=== PATIENT | female | born 1945 | race Caucasian/White ===

== ENCOUNTER → 2018-03-28 | Outpatient (CLI) | payer OTHER, MEDICARE | LOC: FIMAGING 11:05 | PROVIDERS: ATTEND Orthopaedic Surgery | DX: M17.12 Unilateral primary osteoarthritis, left knee (principal) ==

== ENCOUNTER 2018-04-14 07:36 | Inpatient (IN) | payer OTHER, MEDICARE ==
--- NOTE | 2018-04-14 07:02 | PDHPUP ---
History & Physical Update H&P update statement: This history and physical update is based on an assessment of the patient which was completed after admission or registration (within 24 hours), but prior to the surgery/procedure. H&P update: H&P reviewed & patient examined, no change in patient's condition since H&P completed
[~2018-04-14 07:36] MED LIST: ROPIVACAINE 0.2% 80 MG, EPINEPHrine 0.2 MG, KETOROLAC TROMETHAMINE 30 MG in SYRINGE 0 ML IU ONE; TRANEXAMIC ACID 3,000 MG in NS (SYRINGE) 50 ML IRR ONE
[2018-04-14] MEDS ORDERED: LIDOCAINE 1% 2 ML INJ ID PRN (08:30)
[2018-04-14] MEDS ORDERED: ACETAMINOPHEN 325 MG TAB PO ONE (08:30)
[2018-04-14] MEDS ORDERED: ceFAZolin 2 GM/DEXTROSE 100 ML IV ONE (08:30)
[2018-04-14] MEDS ORDERED: DEXAMETHASONE 4 MG/ML VIAL IVP ONE (08:30)
[2018-04-14] MEDS ORDERED: FAMOTIDINE 20 MG TAB PO ONE (08:30)
[2018-04-14] MEDS ORDERED: LR 1,000 ML IV ONE (08:30)
[2018-04-14] MEDS ORDERED: TRANEXAMIC ACID 3,000 MG/50 ML BAG IRR ONE (08:31)
[2018-04-14] MEDS ORDERED: VANCOMYCIN 1 GM VIAL ONE (08:31)
[2018-04-14] MEDS ORDERED: PROPOFOL/EMULSION 500 MG/50 ML BOTTLE IV ONE (08:42)
[2018-04-14] MEDS ORDERED: LIDOCAINE 2% 5 ML SDV ONE (08:44)
--- NOTE | 2018-04-14 08:48 | PDANEPAE ---
ANE History of Present Illness left TKA ANE Past Medical History - Cardiovascular History Hx Hypertension: No Hx Arrhythmias: Yes Hx Chest Pain: No Hx Coronary Artery / Peripheral Vascular Disease: No Hx CHF / Valvular Disease: No Hx Palpitations: No Cardiovascular History Comment: Afib. ppm - Pulmonary History Hx COPD: No Hx Asthma/Reactive Airway Disease: No Hx Recent Upper Respiratory Infection: No Hx Oxygen in Use at Home: No Hx Sleep Apnea: Yes Sleep Apnea Screening Result - Last Documented: Positive Pulmonary History Comment: shannan uses cpap. hx PE'S - Neurologic History Hx Cerebrovascular Accident: No Hx Seizures: No Hx Dementia: No - Endocrine History Hx Diabetes: No - Renal History Hx Renal Disorders: No - Liver History Hx Hepatic Disorders: No - Neurological & Psychiatric Hx Hx Neurological and Psychiatric Disorders: Yes Neurological / Psychiatric History Comment: anxiety - Cancer History Hx Cancer: Yes Cancer History Comment: thyroid - Congenital Disorder History Hx Congenital Disorders: No - GI History Hx Gastrointestinal Disorders: No - Other Health History Other Health History: factor v liden. bruises easily with increased INR. PHLEBITIS 3-4 TIMES - Chronic Pain History Chronic Pain: No - Surgical History Prior Surgeries: thyroidectomy 2015. Failed Afib ablation. PPM 2016 ANE Review of Systems Review of systems is: negative Review of Systems: - Exercise capacity METS (RN): 4 METS ANE Patient History - Allergies Allergies/Adverse Reactions: oxycodone Allergy (Verified 03/19/18 14:52) vomit - Home Medications Home medications: home medication list seen and reviewed Home Medications: Acetaminophen [Tylenol 325mg (*)] 650 mg PO Q6 PRN 03/19/18 [Last Taken Unknown] Acetaminophen/ASA/Caffeine [Excedrin Tablet (*)] 1 each PO DAILY PRN 03/19/18 [ Last Taken 04/13/18] Cholecalciferol Vit D3 [Vitamin D3 (*)] 5,000 units PO DAILY 03/19/18 [Last Taken 03/31/18] Herbals/Supplements -Info Only 1 ea PO DAILY 03/19/18 [Last Taken Unknown] Levothyroxine [Synthroid 200 mcg (*)] 200 mcg PO DAILY06 03/19/18 [Last Taken ] Paroxetine HCl 10 mg PO DAILY 03/19/18 [Last Taken 04/14/18] Warfarin Sodium [Coumadin 5MG (*)] 5 mg PO MOWESA@18 03/19/18 [Last Taken ] Warfarin Sodium [Coumadin 5MG (*)] 7.5 mg PO SUTUTHFR@18 03/19/18 [Last Taken ] - Smoking Hx Smoking Status: Former smoker - Family Anes Hx Family Hx Anesthesia Complications: none ANE Labs/Vital Signs - Vital Signs Height: 182.88 cm Weight: 122.47 kg ANE Physical Exam - Airway Neck exam: FROM Mallampati Score: Class 2 Mouth exam: normal dental/mouth exam - Pulmonary Pulmonary: no respiratory distress - Cardiovascular Cardiovascular: regular rate and rhythym - ASA Status ASA Status: III ANE Anesthesia Plan Anesthesia Plan: spinal Regional Anesthesia: single shot NB, adductor canal FNB
[2018-04-14] MEDS ORDERED: ceFAZolin 3 GM in D5W 100 ML IV ONE (09:30)
[2018-04-14] MEDS ORDERED: MIDAZOLAM 2 MG/2 ML VIAL ONE (09:43)
[2018-04-14] MEDS ORDERED: BUPIVACAINE/DEXTROSE 7.5MG/ML 2 ML SPINAL AMP SP ONE (09:52)
[2018-04-14] MEDS ORDERED: ROPIVACAINE HCL 150 MG/30 ML INJ ONE (09:52)
[2018-04-14 09:53] LABS: INR 1.21 (0.83-1.16); PROTIME(PATIENT) 15.5 SEC (12.0-15.0)
[2018-04-14] MEDS ORDERED: MIDAZOLAM 2 MG/2 ML VIAL IVP ONE (09:53)
--- NOTE | 2018-04-14 09:55 | POSTANESTH ---
Post Anesthetic Evaluation Cardiovascular Status: Normal, Stable Respiratory Status: Normal, Stable Level of Consciousness/Mental Status: Can Participate in Eval, Alert and Oriented Pain Control: Adequate, Prn Tx Ordered Nausea/Vomiting Control: Adequate, Prn Tx Ordered Complications Possibly Related to Anesthesia: None Noted
[2018-04-14] MEDS ORDERED: PROPOFOL 200 MG/20 ML VIAL ONE (10:49)
[2018-04-14] MEDS ORDERED: ACETAMINOPHEN 500 MG TAB PO PRN (11:00)
[2018-04-14] MEDS ORDERED: HYDROmorphONE/DILAUDID 2 MG/ML INJ IVP PRN (11:00)
[2018-04-14] MEDS ORDERED: ALBUTEROL 3 ML DEYVIAL IH PRN (11:00)
[2018-04-14] MEDS ORDERED: HYDROCODONE/APAP 5/325 TAB PO PRN (11:00)
[2018-04-14] MEDS ORDERED: LR 500 ML IV PRN (11:00)
[2018-04-14] MEDS ORDERED: ONDANSETRON 4 MG/2 ML VIAL IVP PRN ×2 (11:00→11:45)
[2018-04-14] MEDS ORDERED: NALOXONE HCL 0.4 MG/ML INJ IVP PRN (11:00)
[2018-04-14] MEDS ORDERED: fentaNYL 100 MCG/2 ML INJ IVP PRN (11:00)
[2018-04-14] MEDS ORDERED: PROMETHAZINE HCL 25 MG/ML INJ IVP PRN (11:45)
[2018-04-14] MEDS ORDERED: TEMAZEPAM 15 MG CAP PO PRN (11:45)
[2018-04-14] MEDS ORDERED: BISACODYL 10 MG SUPP PR PRN (11:45)
[2018-04-14] MEDS ORDERED: LACTULOSE 20 GM/30 ML UDCUP PO PRN (11:45)
[2018-04-14] MEDS ORDERED: DIPHENOXYLATE/ATROPINE LOMOTIL 1 TAB PO PRN (11:45)
[2018-04-14] MEDS ORDERED: METOCLOPRAMIDE 10 MG/2 ML VIAL IVP PRN (11:45)
[2018-04-14] MEDS ORDERED: PROMETHAZINE HCL 25 MG SUPPR PR PRN (11:45)
[2018-04-14] MEDS ORDERED: MAGNESIUM HYDROXIDE 30 ML UDCUP PO PRN (11:45)
[2018-04-14] MEDS ORDERED: diphenhydrAMINE 25 MG CAP PO PRN (11:45)
[2018-04-14] MEDS ORDERED: POLYETHYLENE GLYCOL 3350 17 GM PKT PO PRN (11:45)
--- NOTE | 2018-04-14 11:45 | POSTOPPROG ---
Post Op Note Date of Operation: 04/14/18 Surgeon: Dalton To Customer Engineer: chet to and willian vargas PA-C Anesthesiologist: dr. bear Anesthesia: Spinal, Other (Specify) (adductor canal block) Pre-op Diagnosis: left knee OA Post-op Diagnosis: same Indication: left knee pain Procedure: L TKA robot assisted Findings: severe knee OA Inf/Abcess present in the surg proc area at time of surgery?: No EBL: 50-100
[2018-04-14] MEDS ORDERED: LR 1,000 ML IV SCH (12:00)
[2018-04-14] MEDS ORDERED: ACETAMINOPHEN 325 MG TAB ONE (12:52)
[2018-04-14] MEDS: ACETAMINOPHEN 325 MG TAB PO SCH ×3 (12:53→23:23)
[2018-04-14] MEDS ORDERED: WARFARIN SODIUM 5 MG TAB PO SCH (16:00)
[2018-04-14] MEDS: CYCLOBENZAPRINE 10 MG TAB PO PRN (17:47)
[2018-04-14] MEDS: ceFAZolin 2 GM/DEXTROSE 100 ML IV SCH (17:48)
[2018-04-14] MEDS: FAMOTIDINE 20 MG TAB PO SCH (20:32)
[2018-04-14] MEDS: SENNOSIDES/DOCUSATE SODIUM TAB PO SCH (20:32)
[2018-04-14] MEDS: HYDROmorphONE/DILAUDID 2 MG TAB PO PRN (20:32)
[2018-04-14] MEDS: ONDANSETRON DISINTEGRATING 4 MG TAB PO PRN (20:32)
[2018-04-15] MEDS: ceFAZolin 2 GM/DEXTROSE 100 ML IV SCH (02:06)
[2018-04-15 05:15] LABS: INR 1.33 (0.83-1.16); PROTIME(PATIENT) 16.7 SEC (12.0-15.0)
[2018-04-15] MEDS ORDERED: LEVOTHYROXINE 200 MCG TAB PO SCH (06:00)
[2018-04-15] MEDS: ACETAMINOPHEN 325 MG TAB PO SCH ×2 (06:24→11:09)
--- NOTE | 2018-04-15 08:50 | SOAPPROG ---
SOAP Progress Note Assessment/Plan: Assessment: Patient is doing well POD 1 s/p L TKA Pain management: pain is well controlled on oral pain meds. VTE ppx: recommend resuming coumadin home dose, rec lovenox 40mg BID for 4 days , cont ANTOLIN and SCDs Anemia: level is expected initially postop. Asymptomatic. Continue to monitor D/c planning: Patient has done better than anticipated and would like to be discharged to home today. Patient must be released from PT before discharge to home. sent lovenox script to home pharmacy for 40 mg SC injections Plan: 04/15/18 08:49 Subjective: patient is doing well today, deneis SOB ,chest pain and N/V Objective: Vital Signs Temp Pulse Resp BP Pulse Ox 36.7 C 92 16 113/78 94 04/15/18 08:00 04/15/18 08:00 04/15/18 08:00 04/15/18 08:00 04/15/18 08:00 Laboratory Results 04/15/18 04:40 04/14/18 04/15/18 04/16/18 05:59 05:59 05:59 Intake Total 3123 Output Total 330 Balance 2793 PT 16.7 SEC (12.0-15.0) H 04/15/18 04:40 INR 1.33 (0.83-1.16) H 04/15/18 04:40 LLE; incision dressing is clean and dry, NVI, +pf/df ICD10 Worksheet Patient Problems: Problems Problem Status Onset Primary localized osteoarthritis of left knee Acute
[2018-04-15] MEDS ORDERED: ENOXAPARIN 40 MG/0.4 ML SYR SC SCH (09:00)
[2018-04-15] MEDS ORDERED: PARoxetine HCL 10 MG TAB PO SCH (09:00)
[2018-04-15] MEDS: ONDANSETRON DISINTEGRATING 4 MG TAB PO PRN (09:10)
--- NOTE | 2018-04-15 09:55 | GOP ---
DATE OF OPERATION: 04/14/2018 SURGEON: Peyton Daugherty MD BINDING NICKER: Ena Daugherty, CHRIS ANESTHESIA: Spinal. PREOPERATIVE DIAGNOSIS: Left knee osteoarthritis. POSTOPERATIVE DIAGNOSIS: Left knee osteoarthritis. PROCEDURE PERFORMED: Left total knee arthroplasty with computer navigation, robotic assist. FINDINGS: ESTIMATED BLOOD LOSS: 30 cc. INDICATIONS: The patient is a 72-year-old female with severe and progressive pain and deformity of t he left knee unresponsive to conservative care. The risks and benefits of surgical intervention were explained in detail. DESCRIPTION OF PROCEDURE: The patient was brought to the operative room and placed on the table in t he supine position. Spinal anesthesia was induced without difficulty. A pneumatic tourniquet was appl ied about the left proximal thigh, and the leg was prepped and draped in a sterile fashion. The leg h older was applied. After exsanguination by elevation the tourniquet was inflated to 250 mmHg. Incision was made anterior medial from the tibial tuberosity to a point 2 cm proximal to the superior pole of the patella. Medial parapatellar arthrotomy was carried out from the superior pole of the pa tella and posteriorly in line with the fibers of the Type II VMO. The medial collateral ligament was elevated and the infrapatellar fat pad was resected. The patella was everted and the articular surface was excised. A 35 mm patellar button was placed. Attention was turned first to the distal aspect of the femur. After exposure of the femur, 2 half pi ns were placed for fixation of the femoral array. In a similar fashion, 2 pins were placed anteromed ial on the tibia for fixation of the tibial array. External land marking and registration of the hip center was performed without difficulty. Internal femoral and tibial registration was carried out w ithout difficulty and the femoral and tibial checkpoints were placed and verified for accuracy. Attention was turned to the femur. The foot print for the size 5 femoral component was cut with the saw using the [employer] robotic system and verified for accuracy against the CT based plan. In a similar f ashion, the saw was used to cut the footprint for the size 5 tibial component using the [employer] system an d verified for accuracy against the CT based plan. The tibial articular surface was excised without d ifficulty, followed by the intercondylar box cut. The knee was extended and the remnants of the medial and lateral meniscus were excised. The posterior capsule was injected with ropivacaine, epinephrine and Toradol. A size 5 tibial tray was positioned . Trial reduction was then carried out. There was excellent range of motion, alignment, and stability using the 5 x 11 mm polyethylene. All trials were then removed. The joint was thoroughly irrigated and carefully dried. The press-fit c omponents were implanted. The permanent 5 x 11 mm polyethylene was placed without difficulty. The tourniquet was deflated and all bleeders were coagulated. The wound was thoroughly irrigated and closed using interrupted sutures of 2-0 Vicryl for the joint capsule. The subcu was closed with 3-0 V icryl and the skin with 4-0 Monocryl. Dermabond and Steri-Strips were applied followed by a compress stephania dressing. The patient was then moved from the operating room to the recovery room in good conditi on, having tolerated the procedure well. PATHOLOGY: Severe tricompartmental osteoarthritis. /[id number]/MODL
[2018-04-15] MEDS: HYDROmorphONE/DILAUDID 2 MG TAB PO PRN (10:06)
[2018-04-15] MEDS: FAMOTIDINE 20 MG TAB PO SCH (10:55)
[2018-04-15] MEDS: SENNOSIDES/DOCUSATE SODIUM TAB PO SCH (10:55)
[2018-04-15] MEDS: CYCLOBENZAPRINE 10 MG TAB PO PRN (11:09)
[2018-04-15 13:51] VITALS: BP 106/64
--- NOTE | 2018-04-17 10:49 | GDS ---
ADMISSION DIAGNOSIS: Left knee osteoarthritis. DISCHARGE DIAGNOSIS: Left knee osteoarthritis. PROCEDURE: Left total knee arthroplasty, robotic assisted. VTE PROPHYLAXIS: Recommend resuming Coumadin and on Lovenox twice daily for couple days after surger y. BRIEF DESCRIPTION OF HOSPITAL STAY: Patient was admitted for an elective joint arthroplasty. The pa dianna tolerated the procedure well and has passed physical therapy. The patient was given appropriat e antibiotic prophylaxis and venous thromboembolism prophylaxis. The patient's pain was well control led on oral pain medication, patient was holding down food, and had urinated. Decision was made to d ischarge the patient. The patient was given post-operative prescriptions pre-operatively. PLAN: Followup scheduled in Dr. Daugherty's office in 3 weeks. /[id number]/MODL
== END 2018-04-15 14:34 | disposition home or self-care (01) | DRG 470 ==
LOC: F3N 07:36 → OBSVTOIN 11:48 → F3N 13:19
PROVIDERS: ADMIT Orthopaedic Surgery; ATTEND Orthopaedic Surgery
DX: M17.12 Unilateral primary osteoarthritis, left knee (principal); I48.91 Unspecified atrial fibrillation; G47.33 Obstructive sleep apnea (adult) (pediatric); E89.0 Postprocedural hypothyroidism; Z85.850 Personal history of malignant neoplasm of thyroid; Z87.891 Personal history of nicotine dependence
CPT/HCPCS: 97110-GP; 97116-GP; 97161-GP; J0171; J0690; J1100; J1650; J1885; J2250; J2704; J2795; J3370

== ENCOUNTER → 2018-10-02 | Outpatient (CLI) | payer OTHER, MEDICARE | LOC: FIMAGING 08:54 ==